=== PATIENT | female | born 2000 | race Caucasian/White ===

== ENCOUNTER 2021-05-17 00:04 | Emergency (ER) | payer OTHER, SELFPAY ==
--- NOTE | ~2021-05-17 | CT_ITS ---
EXAMINATION: CTA OF THE HEAD/NECK CLINICAL INFORMATION: Status post injury with right-sided neck pain. Right-sided numbness. COMPARISON: None. TECHNIQUE: A routine non contrast head CT was performed followed by a 70 mL bolus of Omnipaque 350. Subsequent multidetector helical imaging was performed of the head and neck. Delayed post contrast imaging was also performed through the head. Multiplanar reformats and MIP were also obtained. Internal carotid artery stenoses are assessed in accordance with NASCET criteria unless otherwise indicated. This CT examination was performed using dose optimization techniques as appropriate, variously including the following: *Automated exposure control *Adjustment of mA and/or kV according to patient size (this includes techniques or standardized protocols for targeted exams where dose is matched to indication/reason for exam; i.e. extremities or head) *Use of iterative reconstruction technique DLP: 2399 mGy-cm. FINDINGS: CT HEAD: There is no evidence of acute intracranial hemorrhage or territorial infarction. No abnormal mass effect or midline shift is seen. [place] to white matter differentiation is well preserved. No extra-axial fluid collections are identified. No suspicious leptomeningeal or parenchymal enhancement on the post-contrast images. No hydrocephalus. No significant volume loss. There is no abnormal attenuation within the brain parenchyma. The osseous structures and soft tissues are normal. Small mucus retention cyst in the right maxillary sinus. The mastoid air cells and visualized portions of the paranasal sinuses are otherwise well aerated. CTA NECK: The aortic arch is of normal caliber and the origins of the great vessels are patent without evidence of significant stenosis. The cervical portion of the vertebral arteries are patent bilaterally. Dominant left vertebral artery. No luminal irregularities in the common carotid arteries and the carotid bifurcations are patent bilaterally. The cervical portion of the internal carotid arteries are of normal caliber. The laryngeal structures and pharyngeal mucosal spaces are unremarkable. The oral cavity appears normal. The parotid and submandibular glands are normal. No pathologically enlarged lymph nodes. The thyroid gland is unremarkable. The lung apices are clear without evidence of pneumothorax. Spinal alignment is maintained. CTA HEAD: The intradural portion of the vertebral arteries are of normal caliber. The right vertebral artery terminates in the PICA. The basilar, superior cerebellar, and posterior communicating arteries are patent. The posterior, middle, and anterior cerebral arteries are of normal caliber without evidence of significant luminal irregularity. No definite intracranial aneurysms. CT/CT angio head neck IMPRESSION: No acute vascular abnormality. No large vessel occlusion. No evidence of dissection. No acute intracranial finding.
[2021-05-17 00:12] VITALS: BP 136/87; PULSE 71; RESP 16; TEMP 36.8; O2SAT 97; BMI 29.2
--- NOTE | 2021-05-17 00:32 | ED_ITS ---
HPI - Head Injury General Chief complaint: General Medical Stated complaint: Head pain Time Seen by Provider: 05/17/21 00:05 Source: patient Mode of arrival: ambulatory Limitations: no limitations History of Present Illness HPI Narrative: 20 yo female with ADHD comes in with c/o 3 weeks of R sided headache that started after playing rugby, she cannot remember an injury but was told she did not have a concussion since then her headaches have worsened and she feels that there is a film over her R peripheral vision. Her neck is painful and she felt tingling in her RUE and RLE yesterday (04/15). She resumed regular exercise and activities because she was told it wasn't a concussion. She has had trouble with headaches, focusing and sleeping since then. MD Complaint: head pain and other (neck pain) Onset (ago): week(s) (3) Mechanism of Injury: sports related injury (rugby) Place: outdoors Loss of Consciousness: no Location of injury: other (unknown if there was an injury just felt off after the match) Severity: moderate Quality: aching and throbbing Radiation: neck Other Injuries: none Associated symptoms: vision changes, tingling, neck pain and other (difficulty sleeping, the patient also told me that she felt off balance walking at one point this week which is very unusual for her and almost fell over) Related Data Previous Rx's Medication Instructions Recorded cyclobenzaprine 10 mg tablet 10 mg PO TID PRN #14 tab 05/17/21 ibuprofen 600 mg tablet 600 mg PO Q6H PRN #30 tab 05/17/21 ondansetron 4 mg disintegrating 4 mg PO Q8H PRN #20 tab 05/17/21 tablet sumatriptan succinate 25 mg tablet 25 mg PO Q2-4H PRN #6 tab 05/17/21 Allergies Allergy/AdvReac Type Severity Reaction Status Date / Time No Known Allergies Allergy Verified 05/17/21 00:11 Review of Systems Review of Systems: Constitutional : No Fever, No Chills, No Fatigue, pos sleep difficulties ENT/Mouth : No sore throat, No Rhinorrhea, pos neck pain Eyes: No Eye Pain, No Swelling, No Redness Cardiovascular : No Chest Pain, No SOB, No Dyspnea on Exertion Respiratory : No Cough, No Sputum Gastrointestinal : No Nausea, No Vomiting, No Diarrhea, No abdominal Pain Genitourinary : No Dysuria, No Urinary Frequency, No Hematuria, Musculoskeletal : No joint pain, No Myalgias, No Joint Swelling Skin : No Skin Lesions, No rash Neuro : No Weakness, pos Numbness, No Dizziness, positive Headache Psych : No Anxiety/Panic, No Depression Heme/Lymph: No Bruising, No Bleeding,No Lymphadenopathy Endocrine : No Polyuria, No Polydipsia All other systems reviewed and are negative [facility] Past Medical History Attestation statement: The following information was validated with the patient. Medical History ADHD Social History Social History (Updated 05/17/21 @ 01:21 by Rosita Flores DO) Alcohol intake: current Patient Tobacco Use Status: Never used Tobacco Use of substances other than those prescribed or required for medical reasons: No Advance Directives: No Advance Directives Information Provided: Yes Physical Exam Vital Signs: Vital Signs: Last Vital Signs Temp 98.2 F 05/17/21 00:12 Pulse 71 05/17/21 00:12 Resp 16 05/17/21 00:12 BP 136/87 05/17/21 00:12 Pulse Ox 97 05/17/21 00:12 Body Mass Index 29.2 Appearance: Alert. Oriented X3. No acute distress. Eyes: Pupils equal, round and reactive to light. 4mm ENT: Pharynx normal. Neck: Normal inspection. mild ttp along R trapezius CVS: Normal heart rate and rhythm. Pulses normal. Respiratory: No respiratory distress. Breath sounds normal. Abdomen: Soft and non-tender. Skin: Skin warm and dry. Normal skin color. Normal skin turgor. Extremities: No lower extremity edema. No calf ttp Neuro: Oriented X 3. No motor deficit. No sensory deficit. CN2-12 intact, no drift, normal gait, no ataxia NIH Stroke Scale Internal: Initial- Upon Arrival Level of Consciousness: Alert Level of Consciousness Questions: Answers both questions correctly Level of Consciousness Commands: Performs both tasks correctly Best Gaze: Normal Visual: No visual loss Facial Palsy: Normal Motor Arm (Right): No drift Motor Arm (Left): No drift Motor Leg (Right): No drift Motor Leg (Left): No drift Limb Ataxia: Absent Sensory: Normal Best Language: No aphasia Dysarthia: Normal Extinction and Inattention: No abnormality Score: 0 Course Course Course Narrative: negative workup stable for DC MDM - Head Injury MDM Narrative Medical decision making narrative: 20 yo female with no sig PMH was playing ru [employer] 3 weeks ago and since then had a headache was told she did not have a concussino and proceeded to perform regular activities. Her headaches have worsened and now she is having difficulty sleeping, R sided neck pain, feels there is a film over her R lateral eye, and tingling in her extremities - at this time suspect she was concussed and now has a post concussion syndrome but given the neck pain and tingling and this all started with a rugby match I am going to obtain labs and CTA head neck to look for dissection. IVF and medications to treat symptoms. Dispo per results and findings. Lab Data Result diagrams: 05/17/21 01:20 05/17/21 01:20 Labs: Lab Results 05/17/21 05/17/21 05/17/21 Range/Units 01:20 01:20 01:20 WBC 14.0 H (4.8-10.8) X10*3/uL RBC 4.10 L (4.20-5.50) X10*6/uL Hgb 12.7 (12.0-16.0) g/dl Hct 35.5 L (37.0-47.0) % MCV 86.6 (80.0-98.0) fL MCH 31.0 (27.0-33.0) pg MCHC 35.8 H (31.0-35.0) g/dl RDW 11.9 (11.0-16.0) % Plt Count 298 (160-400) X10*3/uL MPV 8.4 L (9.4-12.3) fL Immature Gran % (Auto) 0.3 (0.0-0.4) % Neut % (Auto) 61.6 (45-73) % Lymph % (Auto) 28.9 (20-40) % [place] % (Auto) 6.8 (2-11) % Eos % (Auto) 1.9 (0-4) % Baso % (Auto) 0.5 (0-2) % Lymph # (Auto) 4.1 (1.2-4.9) X10*3/uL [place] # (Auto) 1.0 (0.1-1.2) X10*3/uL Eos # (Auto) 0.3 (0.0-0.4) X10*3/uL Baso # (Auto) 0.1 (0.0-0.2) X10*3/uL Abs Immat Gran (auto) 0.04 H (0.00-0.03) X10*3/uL Absolute Neuts (auto) 8.6 H (2.0-8.3) x10*3/uL Absolute Nucleated RBC 0.000 (0.0-0.012) X10*3/uL Nucleated RBC % (auto) 0.0 (0.0-0.2) /100WBC Sodium 137 (135-145) mmol/L Potassium 3.8 (3.3-5.1) mmol/L Chloride 105 (96-108) mmol/L Carbon Dioxide 24 (22-29) mmol/L Anion Gap 12 (12-20) BUN 19 H (9-16) mg/dL Creatinine 0.75 (0.5-1.4) mg/dL Estim Creat Clear Calc 121.2 Estimated GFR > 60 Random Glucose 92 (60-115) mg/dL Calcium 8.8 (8.4-10.2) mg/dL Urine Test NEGATIVE (NEGATIVE) Discharge Plan Discharge Clinical Impression: Post concussion syndrome Patient Disposition: Home, Self-Care Instructions: Post Concussion Syndrome (ED) Additional Instructions: return to ED for any worsening symptoms or concerns brain rest = no video games, no alcohol, no exercise for 7 days may resume activ ities if you do not have a headache please follow up with your primary care doctor you had a normal CT head and CTA of your brain and neck Prescriptions: New ibuprofen 600 mg tablet 600 mg PO Q6H PRN (Reason: pain) Qty: 30 RF: 0 ondansetron 4 mg tablet,disintegrating 4 mg PO Q8H PRN (Reason: nausea and vomiting) Qty: 20 RF: 0 cyclobenzaprine 10 mg tablet 10 mg PO TID PRN (Reason: muscle spasm) Qty: 14 RF: 0 sumatriptan succinate 25 mg tablet 25 mg PO Q2-4H PRN (Reason: migraine headache) Qty: 6 RF: 0 Stand Alone Forms: Work/School Release
[2021-05-17 01:25] LABS: Basophils Absolute Auto 0.1 X10*3/uL (0.0-0.2); Basophils Percent Auto 0.5 % (0-2); Eosinophils Absolute Auto 0.3 X10*3/uL (0.0-0.4); Eosinophils Percent Auto 1.9 % (0-4); Hematocrit 35.5 % (37.0-47.0); Hemoglobin 12.7 g/dl (12.0-16.0); Imm Gran Abs Auto 0.04 X10*3/uL (0.00-0.03); Imm Gran Pct Auto 0.3 % (0.0-0.4); Lymphocytes Absolute Auto 4.1 X10*3/uL (1.2-4.9); Lymphocytes Percent Auto 28.9 % (20-40); MANUAL DIFF FLAG NO; Mean Corpuscular HGB Conc 35.8 g/dl (31.0-35.0); Mean Corpuscular Volume 86.6 fL (80.0-98.0); Mean Platelet Volume 8.4 fL (9.4-12.3); Monocytes Percent Auto 6.8 % (2-11); Neutrophils Absolute Auto 8.6 x10*3/uL (2.0-8.3); Neutrophils Percent Auto 61.6 % (45-73); Platelet Count 298 X10*3/uL (160-400); Red Cell Distribution Width 11.9 % (11.0-16.0)
[2021-05-17 01:26] LABS: UPreg QC Valid YES; Urine Pregnancy NEGATIVE (NEGATIVE)
[2021-05-17 01:40] LABS: Anion Gap 12 (12-20); Blood Urea Nitrogen 19 mg/dL (9-16); Calcium 8.8 mg/dL (8.4-10.2); Carbon Dioxide 24 mmol/L (22-29); Chloride 105 mmol/L (96-108); Creatinine Clr Calc Pharmacy 121.2; Estimated Glomerular Filt Rate > 60; Glucose Random 92 mg/dL (60-115); Potassium 3.8 mmol/L (3.3-5.1); Sodium 137 mmol/L (135-145)
[2021-05-17] MEDS: 0.9 % Sodium Chloride 1,000 ML 999 ML IV (01:42)
[2021-05-17] MEDS: Metoclopramide HCl 10 MG/2 ML VIAL IVPUSH (01:42)
[2021-05-17] MEDS: diphenhydrAMINE HCL 50 MG/ML VIAL 25 MG IVPUSH (01:42)
--- NOTE | 2021-05-17 01:54 | PC.NURSE ---
The pt presents to the ED alert and oriented x 3 for evaluation of persistent headaches. =nausea, no vomiting. No chest pain or SOB. SPeech clear and appropriate. No unilateral weakness, no facial droop. She appears well, makes eye contact with RN and is calm and cooperative. IV access/labs obtained. IVF's infusing. pt to CTA at this time.
[2021-05-17] MEDS: iohexoL 350 MG/ML 100 ML INFUS..BTL 70 ML IV (02:46)
[2021-05-17 03:21] VITALS: BP 137/71; PULSE 75; TEMP 36.2; O2SAT 97
== END 2021-05-17 03:52 | disposition home or self-care (01) ==
PROVIDERS: Emergency Provider Emergency Medicine; PCP Family Medicine
DX: T14.90XS Injury, unspecified, sequela (principal); F07.81 Postconcussional syndrome; X58.XXXS Exposure to other specified factors, sequela; M54.2 Cervicalgia; R20.2 Paresthesia of skin
CPT/HCPCS: 36415; 70496; 70498; 80048; 81025; 85025; 96361; 96374; 96375; 99284; J1200; J2765; Q9967